=== PATIENT | female | born 1990 | race African-American/Black ===

== ENCOUNTER 2017-10-19 19:04 | Emergency (ER) | payer MEDICAID ==
[~2017-10-19] VITALS: Ht 177.8 cm; Wt 92.0 kg
[~2017-10-19 19:04] MED LIST: IBUP600 PO; OXYC1SOL5 PO; PRENCAP6 PO
[2017-10-19 19:09] VITALS: BP 166/91; PULSE 84; RESP 16; TEMP 98.5; O2SAT 99
[2017-10-19] MEDS ORDERED: ERYTHROMYCIN 0.5% OPTH OINT 3.5 GM TUBO EACH EYE ONE (19:30)
[2017-10-19] MEDS ORDERED: PROPARACAINE HCL 0.5% OPHT SOLN 15 ML BTL EACH EYE ONE (19:30)
[2017-10-19] MEDS ORDERED: diphenhydrAMINE HCL 50 MG CAP PO ONE (19:30)
--- NOTE | 2017-10-19 19:41 | PD ---
HPI Chief Complaint: Eye Problems/Injury Time Seen by Provider: 19:17 Travel History International Travel<30 days: No Contact w/Intl Traveler<30days: No Traveled to known affect area: No History of Present Illness HPI 27-year-old female that presents to the ED for evaluation of bilateral eye itchiness and redness after having new eyelashes put in. Per patient she went to a new place for she had her eyelashes done. Per patient since then she's been developing redness, congestion as well as irritation of the eyes and has pain on her eyes for feels like a burning sensation. She is never had a reaction like this before. Per patient this is a new place but she doesn't know what they put in, but believes it might be a new glue. She's had the symptoms for about 3 hours and came here to get evaluated. She denies any chest pain or shortness of breath. No sore throat. No trouble breathing. No bowel movement changes. Per patient she's never had a reaction like this. She has an allergy to Macrobid. PFSH Past Medical History Diminished Hearing: No Genitourinary: Yes (UTI) Immunizations Current: Yes Tetanus Vaccination: < 5 Years Influenza Vaccination: Yes ?: Unknown : 3 Para: 3 Past Surgical History Section: Yes (X 3) Gynecologic Surgery: Yes (C-SEC X 3) Social History Alcohol Use: No Tobacco Use: No (former smoker) Substance Use: Yes (MARIJUANA) Allergies-Medications (Allergen,Severity, Reaction): Coded Allergies: nitrofurantoin (Unverified Allergy, Intermediate, Itching, 10/19/17) Uncoded Allergies: CITRUS (Allergy, Severe, 12/08/12) Reported Meds & Prescriptions Reported Meds & Active Scripts Active Benadryl Allergy (Diphenhydramine HCl) 25 Mg Cap 1 Tab PO Q6HR PRN Erythromycin Opth Oint 5 Mg/Gm Oint 1 Applic EACH EYE BID Review of Systems Except as stated in HPI: all other systems reviewed are Neg Physical Exam Narrative GENERAL: SKIN: Warm and dry. HEAD: Atraumatic. Normocephalic. EYES: Pupils equal and round 4 mm reactive to light and accommodation. No scleral icterus. No injection or drainage. Patient does have erythema to both eyes with tearing. EOM intact bilaterally. Peripheral vision intact bilaterally. Fluorescein stain revealed no sign of scratch or ulceration. ENT: No nasal bleeding or discharge. Mucous membranes pink and moist. NECK: Trachea midline. No JVD. CARDIOVASCULAR: Regular rate and rhythm. RESPIRATORY: No accessory muscle use. Clear to auscultation. Breath sounds equal bilaterally. GASTROINTESTINAL: Abdomen soft, non-tender, nondistended. Hepatic and splenic margins not palpable. MUSCULOSKELETAL: Extremities without clubbing, cyanosis, or edema. No obvious deformities. NEUROLOGICAL: Awake and alert. No obvious cranial nerve deficits. Motor grossly within normal limits. Five out of 5 muscle strength in the arms and legs. Normal speech. PSYCHIATRIC: Appropriate mood and affect; insight and judgment normal. Data Data Last Documented VS Vital Signs Date Time Temp Pulse Resp B/P (MAP) Pulse Ox O2 Delivery O2 Flow Rate FiO2 10/19/17 19:09 98.5 84 16 166/91 (116) 99 Room Air Orders Orders Proparacaine 0.5% Opth Soln (Alcaine 0.5 (10/19/17 19:30) Erythromycin 0.5% Opth Oint (Ilotycin 0. (10/19/17 19:30) Diphenhydramine (Benadryl) (10/19/17 19:30) Acetaminophen (Tylenol) (10/19/17 20:00) Call Poison Control (10/19/17 20:27) Ed Discharge Order (10/19/17 21:04) [facility] Medical Decision Making Medical Screen Exam Complete: Yes Emergency Medical Condition: Yes Medical Record Reviewed: Yes Differential Diagnosis allergic reaction versus allergic dermatitis versus eye abrasion Narrative Course 27-year-old female that presents to the ED for evaluation of possible reaction to eyelashes. Patient was properly examined and was found to have signs and symptoms consistent with what appears to be mildly reaction. Case was discussed in my attending who was in our findings and agrees with plan. Patient will be given erythromycin ointment and was given warm compresses as well as flushes to try to get the eyelashes removed. The patient was given as well to help with this process. Patient was told that the eyelashes have to come off and she agrees with this plan. Poison control contacted whom recommended the same. This was done and after a few trials, eyelashes were removed with improvement of symptoms. Will discharge with prescriptions for erythromycin ointment and benadryl. No more products on the eye until better. See ED if worst. Diagnosis Primary Impression: Allergic conjunctivitis Qualified Codes: H10.13 - Acute atopic conjunctivitis, bilateral Patient Instructions: General Instructions Additional Instructions: Take medication as prescribed. Take Benadryl every 6 hours as needed. Warm compresses to the eye. See ED worsening symptoms. Follow with PCP. No new eyelashes for at least a week, if possible find out material or brand used today to avoid next time. Med/Other Pt SpecificInfo: Prescription(s) given Scripts Diphenhydramine HCl (Benadryl Allergy) 25 Mg Cap 1 TAB PO Q6HR Y for ITCHING, #10 Prov: Bonita Caceres MD 10/19/17 Erythromycin Opth Oint (Erythromycin Opth Oint) 5 Mg/Gm Oint 1 APPLIC EACH EYE BID for Infection, #1 TUBE 0 Refills Prov: Bonita Caceres MD 10/19/17 Disposition: 01 DISCHARGE HOME Condition: Stable Chicho Dong Oct 19, 2017 19:41
[2017-10-19] MEDS ORDERED: ACETAMINOPHEN 325 MG TAB PO ONE (20:00)
[2017-10-19] MEDS ORDERED: ERYTOIN10 EACH EYE (20:40)
[2017-10-19] MEDS ORDERED: BENA25CA4 PO (20:40)
== END 2017-10-19 21:29 | disposition home or self-care (01) ==
LOC: NEPC 19:04
DX: H10.13 Acute atopic conjunctivitis, bilateral (principal); Z87.891 Personal history of nicotine dependence; Z88.8 Allergy status to other drugs, medicaments and biological substances
CPT/HCPCS: 99283; Q0163

== ENCOUNTER 2017-11-07 08:07 | Emergency (ER) | payer MEDICAID ==
[~2017-11-07] VITALS: Ht 172.7 cm; Wt 140.0 kg
[~2017-11-07 08:07] MED LIST changes: +BENA25CA4 PO; +ERYTOIN10 EACH EYE; -IBUP600 PO; -OXYC1SOL5 PO; -PRENCAP6 PO
[2017-11-07 08:09] VITALS: BP 130/82; PULSE 82; RESP 14; TEMP 97.9; O2SAT 100
[2017-11-07] MEDS ORDERED: IBUPROFEN 800 MG TAB PO ONE (09:30)
[2017-11-07] MEDS ORDERED: METHOCARBAMOL 500 MG TAB PO SCH (09:30)
--- NOTE | 2017-11-07 09:33 | PD ---
HPI Chief Complaint: Fall Time Seen by Provider: 08:49 Travel History International Travel<30 days: No Contact w/Intl Traveler<30days: No Traveled to known affect area: No History of Present Illness HPI 27-year-old female presents to the emergency Department with complaint of posterior head pain with headache, left upper back pain, mid lower back pain after slipping and falling in the bathtub yesterday and hitting her head on the wall. Denies loss of consciousness. Denies neck pain. Denies anticoagulant therapy. Denies confusion, disorientation, change in mentation, focal deficits or weakness, slurred speech, lightheadedness, dizziness. Woke up this morning with a headache. Denies fevers, vomiting. Denies chest pain, shortness of breath, abdominal pain. Denies encopresis, incontinence, saddle anesthesias. Denies paresthesias, loss of sensation, decreased range of motion, decreased strength all extremities. Denies change in gait. Rates back pain 10/10. Rates headache 8/10. Describes it as a "thumping" sensation. Describes back pain as aching and throbbing. Has not taken any medications or tried any treatments to alleviate the symptoms. Pain is aggravated with movement and ambulation. Hasn't established primary care provider. Allergies to nitrofurantoin and citrus. Denies significant past medical history. Patient has a Mirena and denies risk of . Unknown last menstrual period. Has no other medical complaints. No other modifying factors or associated signs and symptoms. PFSH Past Medical History Medical History: Denies Significant Hx Diminished Hearing: No Genitourinary: Yes (UTI) Immunizations Current: Yes ?: Not LMP: have the dwain : 4 Para: 4 Past Surgical History Surgical History: No Previous Surgery Section: Yes (X 4) Gynecologic Surgery: Yes (C-SEC X 3) Social History Alcohol Use: Yes (occas) Tobacco Use: Yes Substance Use: No Allergies-Medications (Allergen,Severity, Reaction): Coded Allergies: nitrofurantoin (Unverified Allergy, Intermediate, Itching, 10/19/17) Uncoded Allergies: CITRUS (Allergy, Severe, 12/08/12) Reported Meds & Prescriptions Reported Meds & Active Scripts Active Ibuprofen 800 Mg Tab 800 Mg PO Q6HR PRN Robaxin (Methocarbamol) 500 Mg Tab 500 Mg PO QID PRN Review of Systems Except as stated in HPI: all other systems reviewed are Neg Physical Exam Narrative GENERAL: Well-nourished, well-developed black female patient, in no acute distress SKIN: Warm and dry. HEAD: Atraumatic. Normocephalic. No facial or scalp abrasions or lacerations noted. No facial droop noted. Tongue midline. EYES: Pupils equal and round at 3 mm with brisk reaction. EOMI. PERRLA. No scleral icterus. No injection or drainage. No raccoon eyes. No orbital tenderness on palpation bilaterally. ENT: Mucosa pink and moist. No erythema or exudates. No uvular edema. No uvular , palatal, or tonsillar deviation. Airway patent. Nares without nasal blood, purulent drainage or septal hematoma. No rhinorrhea. EARS: Bilateral pinnae and external canals appear within normal limits. Bilateral tympanic membranes without erythema, dullness, hemotympanum or perforation. No otorrhea. No tabares signs. NECK: Moving freely. Trachea midline. No lymphadenopathy. Active rotation of the neck greater than 45 left and right. No midline point tenderness on palpation of the cervical spine. No obvious deformities. CHEST: No retractions or use of accessory muscles. CARDIOVASCULAR: Regular rate and rhythm. No murmur appreciated. RESPIRATORY: No accessory muscle use. Clear to auscultation. Breath sounds equal bilaterally. GASTROINTESTINAL: Abdomen soft, non-tender, nondistended. Hepatic and splenic margins not palpable. Bowel sounds are active 4 quadrants. MUSCULOSKELETAL: No obvious deformities. No clubbing. No cyanosis. No edema. BACK: Midline point tenderness on palpation of the lumbar spine. No midline tenderness on palpation of the thoracic spine. Replaceable tenderness to the left upper trapezius musculature of the back. No obvious deformities. Patient sitting up in bed at 90. Ambulatory in the room with normal gait. NEUROLOGICAL: Awake and alert. Oriented 3. No obvious cranial nerve deficits. Motor grossly within normal limits. Normal speech. No midline drift. No ataxia. Moves all extremities. No upper or lower extremity drift. 5/5 strength to all extremities. Sensory intact. PSYCHIATRIC: Appropriate mood and affect; insight and judgment normal. Data Data Last Documented VS Vital Signs Date Time Temp Pulse Resp B/P (MAP) Pulse Ox O2 Delivery O2 Flow Rate FiO2 11/07/17 08:09 97.9 82 14 130/82 (98) 100 Orders Orders Spine, Lumbar - Ltd (Ap & Lat) (11/07/17 09:27) Ibuprofen (Motrin) (11/07/17 09:30) Methocarbamol (Robaxin) (11/07/17 09:30) [facility] Medical Decision Making Medical Screen Exam Complete: Yes Emergency Medical Condition: Yes Medical Record Reviewed: Yes Differential Diagnosis fall, headache, closed head injury, muscle strain of back, low back strain Narrative Course 27-year-old female with headache, trapezius muscle pain of the right upper back , and low back pain after mechanical fall yesterday. The patient admits to hitting their head, but denies loss of consciousness. Denies nausea, vomiting. On physical exam the patient is without raccoon eyes, tabares signs, rhinorrhea , or hemotympanum. I do not suspect open or depressed skull fracture, and the patient has no signs of basilar skull fracture. [place] [facility] CT Head Injury Rule suggests a head CT is not necessary for this patient and clears the patient for head injury without imaging. Denies neck pain. [place] [facility] C-Spine Rule suggests the C-Spine can be cleared clinically of fracture, and imaging is not required. There is no midline point tenderness on palpation of the cervical spine. The patient is able to actively rotate the neck 45 left and right. The patient is sitting up in bed at 90. The patient is ambulatory. Patient has midline tenderness on compression of the lumbar spine. Neuro exam is unremarkable. Lumbar spine x-ray ordered. Robaxin and ibuprofen ordered. 1035: Lumbar spine x-ray negative. Discussed findings of the x-ray with the patient. Robaxin and ibuprofen prescribed for home. Instructed patient to follow up with primary care provider. Patient verbalizes understanding and agreement with treatment plan. Patient is medically cleared and stable for discharge. Discussed reasons to return to the emergency department. Patient agrees with treatment plan. The patients vital signs are stable and the patient is stable for outpatient follow-up and treatment. Patient discharged home, stable and in no acute distress. Diagnosis Primary Impression: Fall Qualified Codes: W19.XXXA - Unspecified fall, initial encounter Additional Impressions: Head injury Qualified Codes: S09.90XA - Unspecified injury of head, initial encounter Headache Qualified Codes: R51 - Headache Strain of cervical portion of left trapezius muscle Lower back injury Qualified Codes: S39.92XA - Unspecified injury of lower back, initial encounter Referrals: Primary Care Physician Patient Instructions: Acute Low Back Pain (ED), Fall Prevention (ED), General Instructions, Head Injury (ED), Low Back Strain (ED), Muscle Strain (ED) Departure Forms: Tests/Procedures, Work Release Enter return to work date: Nov 10, 2017 Additional Instructions: Tylenol or ibuprofen as directed and as needed for pain Robaxin as prescribed and as needed for muscle spasms Heating pad and/or ice to affected area to reduce pain Avoid aggravating activities; increase activity as tolerated Follow-up with primary care provider Return to emergency department immediately with worsening of symptoms Med/Other Pt SpecificInfo: Prescription(s) given Scripts Ibuprofen (Ibuprofen) 800 Mg Tab 800 MG PO Q6HR Y for PAIN, #30 TAB 0 Refills Prov: Henny Albright 11/07/17 Methocarbamol (Robaxin) 500 Mg Tab 500 MG PO QID Y for MUSCLE SPASM, #30 TAB 0 Refills Prov: Henny Albright 11/07/17 Disposition: 01 DISCHARGE HOME Condition: Stable Henny Albright Nov 07, 2017 09:33
[2017-11-07] MEDS ORDERED: ROBA500T PO (09:49)
[2017-11-07] MEDS ORDERED: IBUP1TAB7 PO (09:49)
--- NOTE | 2017-11-07 10:24 | RADRPT ---
EXAM DATE/TIME: 11/07/2017 09:44 [facility] COMPARISON: No previous studies available for comparison. INDICATIONS : Fell in the bath tub last . MEDICAL HISTORY : swallowed her tongue percing ball last night SURGICAL HISTORY : None. ENCOUNTER: Initial ACUITY: 1 day PAIN SCORE: 10/10 LOCATION: Bilateral lumbar spine FINDINGS: Two view examination was performed. There are five non-rib bearing vertebral bodies. The vertebral bodies are in normal alignment without evidence of subluxation or scoliosis. The disc spaces are paramjit ntained. The pedicles are intact. Bony mineralization is normal. No fracture is identified. IUD i n the pelvis. CONCLUSION: Negative Alfredito Da Silva MD FACR on November 07, 2017 at 10:21 Board Certified Radiologist. This report was verified electronically.
[2017-11-07 10:55] VITALS: RESP 16
== END 2017-11-07 10:43 | disposition home or self-care (01) ==
LOC: NEPD 08:07
DX: S09.90XA Unspecified injury of head, initial encounter (principal); S16.1XXA Strain of muscle, fascia and tendon at neck level, initial encounter; S39.92XA Unspecified injury of lower back, initial encounter; W18.2XXA Fall in (into) shower or empty bathtub, initial encounter; Z72.0 Tobacco use
CPT/HCPCS: 72100; 99283

== ENCOUNTER 2018-03-10 12:28 | Emergency (ER) | payer MEDICAID ==
[~2018-03-10] VITALS: Ht 172.7 cm; Wt 132.0 kg
[~2018-03-10 12:28] MED LIST changes: -BENA25CA4 PO; -ERYTOIN10 EACH EYE; +IBUP1TAB7 PO; +ROBA500T PO
[2018-03-10 12:33] VITALS: BP 137/70; PULSE 139; RESP 24; TEMP 97.8; O2SAT 98
[2018-03-10] MEDS: SODIUM CHLOR 0.9% 1000 ML INJ 1,000 ML IV SCH ×2 (12:48→13:27)
[2018-03-10] MEDS ORDERED: SODIUM CHLORIDE 0.9% FLUSH 10 ML FLUSH IV FLUSH PRN (13:00)
[2018-03-10] MEDS ORDERED: diphenhydrAMINE HCL 50 MG/ML VIAL IVP ONE (13:00)
[2018-03-10] MEDS ORDERED: methylPREDNISolone SOD SUCC 125 MG/2 ML VIAL IV PUSH ONE (13:00)
[2018-03-10] MEDS ORDERED: FAMOTIDINE 20 MG TAB PO ONE (13:00)
[2018-03-10 13:10] VITALS: BP 113/62; PULSE 79; RESP 18; O2SAT 100
[2018-03-10] MEDS ORDERED: predniSONE 20 MG TAB PO ONE (13:15)
[2018-03-10] MEDS ORDERED: diphenhydrAMINE HCL 50 MG CAP PO ONE (13:15)
[2018-03-10] MEDS ORDERED: PRED-503 PO (13:24)
--- NOTE | 2018-03-10 13:24 | PD ---
HPI Chief Complaint: Allergic/Adverse Reaction Time Seen by Provider: 12:48 Travel History International Travel<30 days: No Contact w/Intl Traveler<30days: No Traveled to known affect area: No History of Present Illness HPI 27-year-old presents emergency department complaining of urticaria hives and itching after receiving a ceftriaxone injection at an urgent care about an hour or so prior to arrival. She states she was diagnosed trichomonas. They are treating her presumptively for gonorrhea and chlamydia. After the injection she developed urticaria hives. Feels a little bit tightness in her chest. No shortness of breath. No other complaints. No history of previous similar episodes. History Past Medical History Medical History: Denies Significant Hx Tetanus Vaccination: < 5 Years Influenza Vaccination: Yes LMP: 2016 : 4 Para: 4 Social History Alcohol Use: Yes (occas) Tobacco Use: No (FORMER) Allergies-Medications (Allergen,Severity, Reaction): Coded Allergies: ceftriaxone (Verified Allergy, Severe, hives, 03/10/18) chest tightness nitrofurantoin (Verified Allergy, Intermediate, Itching, 03/10/18) Uncoded Allergies: CITRUS (Allergy, Severe, 12/08/12) Reported Meds & Prescriptions Reported Meds & Active Scripts Active No Active Prescriptions or Reported Medications Review of Systems Except as stated in HPI: all other systems reviewed are Neg Physical Exam Narrative GENERAL: Well-appearing 27-year-old woman, no acute distress. SKIN: Some hives on the skin with some secondary excoriations. Mostly on the arms and HEAD: Atraumatic. Normocephalic. EYES: Pupils equal and round. No scleral icterus. No injection or drainage. ENT: No nasal bleeding or discharge. Mucous membranes pink and moist. NECK: Trachea midline. No JVD. CARDIOVASCULAR: Regular rate and rhythm. No murmur appreciated. RESPIRATORY: No respiratory distress. No wheezing. GASTROINTESTINAL: Abdomen soft, non-tender, nondistended. Hepatic and splenic margins not palpable. MUSCULOSKELETAL: No obvious deformities. No edema. NEUROLOGICAL: Awake and alert. No obvious cranial nerve deficits. Motor grossly within normal limits. Normal speech. Data Data Last Documented VS Vital Signs Date Time Temp Pulse Resp B/P (MAP) Pulse Ox O2 Delivery O2 Flow Rate FiO2 03/10/18 13:10 79 18 113/62 (79) 100 Room Air 03/10/18 12:33 97.8 Orders Orders Diphenhydramine Inj (Benadryl Inj) (03/10/18 13:00) Methylprednisolone So Succ Inj (Solumedr (03/10/18 13:00) Sodium Chlor 0.9% 1000 Ml Inj (Ns 1000 M (03/10/18 12:48) Sodium Chloride 0.9% Flush (Ns Flush) (03/10/18 13:00) Famotidine (Pepcid) (03/10/18 13:00) Prednisone (Deltasone) (03/10/18 13:15) Diphenhydramine (Benadryl) (03/10/18 13:15) MDM Medical Decision Making Medical Screen Exam Complete: Yes Emergency Medical Condition: Yes Differential Diagnosis Allergic reaction, urticaria, hives, other Narrative Course 27-year-old presents with urticaria following exposure ceftriaxone. She looks well. There is no respiratory difficulty or wheezing. She does describe a tightness. Recommended IV interventions. Patient's refusing IV since she does not want to stay. Recommended short period of observation in the ED to ensure improvement. Diagnosis Primary Impression: Allergic reaction Patient Instructions: General Instructions Additional Instructions: Take [id number] Benadryl as needed for itching. Take steroids as prescribed. Follow-up with your primary doctor in the next 2-4 days. Take Flagyl and azithromycin as prescribed. Return immediately to the emergency department for any difficulty breathing, any difficulty swallowing, any abdominal pain or vomiting, or any other new or worsening symptoms. Med/Other Pt SpecificInfo: Prescription(s) given Scripts Prednisone (Deltasone) 20 Mg Tab 20 MG PO BID for 3 Days, #6 TAB 0 Refills Prov: Jose Waters MD 03/10/18 Disposition: 01 DISCHARGE HOME Condition: Stable Jose Waters MD March 10, 2018 13:24
== END 2018-03-10 13:37 | disposition home or self-care (01) ==
LOC: NEPC 12:28
DX: T78.40XA Allergy, unspecified, initial encounter (principal)
CPT/HCPCS: 99283; J7512; Q0163